=== PATIENT | female | born 1990 | race Hispanic/Latino ===

== ENCOUNTER 2024-11-02 21:22 | Emergency (ER) | payer SELFPAY ==
[~2024-11-02] VITALS: Ht 154.9 cm; Wt 36.3 kg
[2024-11-02] MEDS ORDERED: BENZONATATE 200 MG/CAP PO ONE (23:10)
[2024-11-02] MEDS ORDERED: DEXAMETHASONE 2 MG/TAB TAB PO ONE (23:10)
[2024-11-03] MEDS ORDERED: levoFLOXacin 500 MG TAB PO ONE (01:00)
[2024-11-03] MEDS ORDERED: BENZONATATE200 MG PO (01:06)
[2024-11-03] MEDS ORDERED: LEVOFLOXACIN750 MG PO (01:06)
[2024-11-03 01:50] VITALS: BP 108/66
== END 2024-11-03 01:50 | disposition home or self-care (01) | DRG 195 ==
LOC: ED 21:22
DX: J18.9 Pneumonia, unspecified organism (principal); Z20.822 Contact with and (suspected) exposure to COVID-19